=== PATIENT | female | born 1950 | race Two or more races ===

== ENCOUNTER → 2023-04-21 06:59 | Outpatient (REF) | payer MEDICAID, SELFPAY ==
[2023-04-21] MEDS: LEXISCAN 0.400000000000000022 MG IV (08:35)
[2023-04-21] MEDS: FLUSH (NSS) 1 FLUSH IV (08:35)
[2023-04-21] MEDS: AMINOPHYLLINE 75 MG IV (08:49)
== END ==
LOC: RCS 06:59
PROVIDERS: ATTENDING PHYSICIAN Internal Medicine Cardiovascular Disease; FAMILY PHYSICIAN Internal Medicine
DX: R07.89 Other chest pain (principal)
CPT/HCPCS: 78452; 93017; A9500; J2785